=== PATIENT | female | born 1990 | race Caucasian/White ===

== ENCOUNTER 2017-02-11 11:53 | Emergency (ER) | payer OTHER ==
[2017-02-11] MEDS ORDERED: KETOROLAC TROMETHAMINE 60 MG/2 ML VIAL IM ONE ×2 (12:12→12:20)
--- NOTE | 2017-02-11 12:13 | ERNOTE ---
Abdominal HPI - Narrative Date of Service: 02/11/17 - General Chief Complaint: Abdominal Pain Time Seen by Provider: 02/11/17 12:05 Source: patient, RN notes reviewed Exam Limitations: no limitations - Immun/Allergies/Home Medications Immunizatons: IMMUNIZATION HX Immunizations Up to Date Yes Allergies/Adverse Reactions: Allergies prochlorperazine edisylate [From Compazine] Allergy (Severe, Verified 02/11/17 11:59) TONGUE SWELLS prochlorperazine maleate [From Compazine] Allergy (Verified 02/11/17 11:59) Home Medications: HOME MEDICATIONS Levonorgestrel [Mirena] 1 each IY PRN PRN 09/27/13 [Last Taken Unknown] Sulfamethoxazole/Trimethoprim [Bactrim Ds] 1 tab PO BID #14 tab 02/11/17 [Last Taken Unknown] - History of Present Illness Narrative: 26 y/o female ambulatory to the ED for abdominal pain that began an hour ago. She has had ovarian cysts in the past and is concerned that she may have one again. She has a Mirena and does not have periods. She reports not being sexually active for several months. Her pain is in her right lower quadrant. Timing: constant Quality: severe, aching Activities at Onset: none Associated Symptoms: Present: nausea. Absent: back pain, fever/chills, vomiting , swelling/mass in abdomen, syncope Prior Abdominal Problems: Present: similar symptoms Prior Treatment: Absent: recently seen Review of Systems - Review of Systems Constitutional: Absent: recent illness, fever, chills EYE: Present: no symptoms reported ENT: Present: no symptoms reported Respiratory: Absent: shortness of breath, cough Cardiology: Present: no symptoms reported Gastrointestinal/Abdominal: Present: nausea, abdominal pain. Absent: vomiting, diarrhea, constipation Genitourinary: Present: frequency. Absent: dysuria, hematuria, discharge Musculoskeletal: Absent: back pain, muscle pain Skin: Absent: rash, lesions Neurological: Absent: headache, dizziness/light-headedness Endocrine: Present: no symptoms reported Hematologic/Lymphatic: Present: no symptoms reported Psych: Present: no symptoms reported - Patient's Past Medical History Patient History - Medical: Other Patient History - Cardiac/Respiratory: No pertinent hx Patient History - Cancer: No Hx of Cancer Patient History - Surgical Procedures: T & A, Other - Ovarian cystectomy, Orthopedic LMP (females 10-50): IUD LMP (Calendar): 04/08/16 - Social History Living Situations: home Smoking Status: Never smoker Have you smoked in the past 12 months: No - Immunizations Immunizations Up to Date: Yes Physical Exam - Physical Exam General Appearance: Present: wd/wn, alert, mild distress, other - tearful Neck: Present: normal inspection, nontender, supple, full range of motion Respiratory: Present: no respiratory distress, normal breath sounds, no accessory muscle use, lungs clear Cardiovascular/Chest: Present: regular rate, rhythm, no murmur, normal peripheral pulses Gastrointestinal/Abdominal: Present: normal bowel sounds, nondistended, soft, tenderness - mild throughout lower abdomen/pelvic region. Absent: guarding, rebound, mass Back Exam: Present: normal inspection, no CVA tenderness Extremity Exam: Present: normal inspection, normal range of motion Neurological Exam: Present: alert, oriented, normal mood/affect, no motor/ sensory deficits Skin Exam: Present: normal color, warm/dry Pelvic Exam: Present: tender adnexa - mild bilateral, no palpable adnexal mass. Absent: active bleeding, discharge, lesions, cervical motion tendernes, tender uterus ED Progress - Results and Orders Patient's Lab Results:: I have reviewed the patient's lab results. - Vital Signs Patient's Vital Signs:: I have reviewed the patient's vital signs. Vital Signs: Vital Signs 02/11/17 11:56 Temperature 36.7 C Pulse Rate 139 H Respiratory 14 Rate Blood Pressure 148/100 O2 Sat by Pulse 98 Oximetry - Progress/Reassessment Chief Complaint: Abdominal Pain Progress:: Improved Plan - Plan Plan: Pain improved with Toradol. Labs unremarkable. No focal tenderness on bimanual exam to suggest a cyst as the cause of her pain. Will treat for UTI. Discussed f /u for worsening symptoms. Patient in agreement with plan. Urine culture pending. Departure - Departure Clinical Impression: Pelvic pain Urinary tract infection Qualifiers: Urinary tract infection type: acute cystitis Hematuria presence: without hematuria Qualified Code(s): N30.00 - Acute cystitis without hematuria Disposition: Home Follow Up Needed Condition: Stable Instructions: Urinary Tract Infection, Adult, [id number] Additional Instructions: Increase fluid intake Tylenol and ibuprofen are both ok to take for pain Return for worsening pain, vomiting, fever, or other concerning symptoms Referrals: Martha Mckeon MD [Primary Care Provider] - Prescriptions: Sulfamethoxazole/Trimethoprim [Bactrim Ds] 1 tab PO BID #14 tab
[2017-02-11 12:21] LABS: Hematocrit 40.5 % (37.0-47.0); Hemoglobin 13.7 gm/dL (12.5-16.0); Mean Cell Volume 81.3 fl (78-100); Mean Corpuscular Hemoglobin 27.5 pg (27-31); Mean Corpuscular Hgb Conc 33.8 g/dl (32-36); Mean Platelet Volume 8.4 fl (6.0-9.5); Neutrophil # 5.4 K/mm3 (1.3-6.0); Neutrophil % 64.4 % (42-75.0); Platelet Count 285 K/mm3 (150-450); Red Blood Count 4.98 M/mm3 (4.2-5.4); Red Cell Distribution Width 12.5 % (11.5-14.0); White Blood Count 8.3 K/mm3 (4.0-10.5)
[2017-02-11 12:27] VITALS: BP 142/75
[2017-02-11 12:31] LABS: Urine Bilirubin Negative (NEGATIVE); Urine Blood Negative /ul (NEGATIVE); Urine Ketone Negative (NEGATIVE); Urine Nitrite Negative (NEGATIVE); Urine Protein Negative (NEGATIVE); Urine Urobilinogen Normal (NORMAL); Urine pH 6.5 pH (5.0-7.0)
[2017-02-11 12:32] LABS: Albumin * 3.6 gm/dl (3.4-5.0); Anion Gap 10.1 mmol/L (6.8-13.8); BUN/Creatinine Ratio 12.9 (9.0-21.6); Bilirubin, Total 0.3 mg/dL (0.0-1.1); CRP 0.2 mg/dL (0.0-0.9); Ca. Corrected For Albumin 9.2 mg/dL (8.4-10.2); Calcium * 9.2 mg/dL (7.9-10.9); Carbon Dioxide 31.2 mmol/L (24-32.6); Potassium 4.3 mmol/L (3.4-4.6); Total Protein 6.9 gm/dL (6.2-8.2)
[2017-02-11 12:47] LABS: Urine Appearance Slightly Cloudy; Urine Bacteria 2+; Urine Color Yellow; Urine RBC None Seen /hpf (0-5)
== END 2017-02-11 13:29 | disposition home or self-care (01) ==
LOC: ER 11:53
DX: R10.2 Pelvic and perineal pain (principal); N30.00 Acute cystitis without hematuria